=== PATIENT | male | born 1975 | race Two or more races ===

== ENCOUNTER 2024-11-26 17:07 | Emergency (ER) | payer BC, SELFPAY ==
[2024-11-26 17:21] VITALS: BP 224/117; PULSE 89; RESP 18; TEMP 36.7; O2SAT 99
--- NOTE | 2024-11-26 17:27 | XR_ITS ---
Examination: CT brain head without contrast. 2-D sagittal coronal reconstructions Date and time of exam:November 26, 2024, 1733 hrs. Indications: Severe headaches and dizziness beginning 3 days ago CTDI: vol (mGy):50.9. DLP: (mGycm):993. Technique: Multiple CT axial sections of the brain have been obtained, 5 mm slice thickness. Contrast has not been administered. 2-D sagittal, coronal reconstructions have been obtained Low dose protocols were performed. One or more of the following dose reduction techniques were used; automated exposure control, adjustment of the mA and/or KV according to patient size, use of iterative reconstruction technique. Findings: No significant ventricular enlargement. Intra-axial or extra-axial hemorrhage density is not seen. No mass effect or midline shift Basal cisterns are not remarkable. Fourth ventricle is midline. Cranial vault intact. Chronic pansinusitis. Impression: Negative for acute hemorrhage, mass effect or midline shift Advise clinical correlation and follow-up accordingly.
--- NOTE | 2024-11-26 17:28 | PD.EDRME ---
Rapid Medical Screening Exam RME Arrival date/time: 11/26/24 17:07 49-year-old male with history of hypertension presents to the emergency room with a chief complaint of a 10 out of 10 headache, dizziness, lightheadedness x 3 days I have greeted and performed a focused initial assessment of this patient. A comprehensive ED assessment and evaluation of the patient, analysis of all test results, and completion of the medical decision making process will be conducted by additional ED providers. Chief Complaint: Dizziness Time Seen by Provider: 11/26/24 17:09 Vital signs: Vital Signs Temperature 98.1 F 11/26/24 17:21 Pulse Rate 89 11/26/24 17:21 Respiratory Rate 18 11/26/24 17:21 Blood Pressure 224/117 H 11/26/24 17:21 Pulse Oximetry (%) 99 11/26/24 17:21 Oxygen Delivery Method Room Air 11/26/24 17:21 Vital signs reviewed by provider: Yes
[2024-11-26 17:45] VITALS: BP 216/133; PULSE 87
[2024-11-26 17:57] LABS: Basophils # (Auto) 0.1 Thou/mm3 (0.0-0.2); Basophils % (Auto) 1 % (0-2.5); Eosinophils # (Auto) 0.0 Thou/mm3 (0.0-0.5); Eosinophils % (Auto) 1 % (0-10); Hematocrit 48.0 % (41.0-53.0); Hemoglobin 16.3 g/dL (13.5-16.0); Immature Granulocytes Auto 0.02 Thou/mm3 (0.00-0.00); Lymphocytes # (Auto) 2.0 Thou/mm3 (1.0-4.8); Lymphocytes % (Auto) 23 % (10-50); Mean Corpuscular HGB Conc 34.0 g/dl (31.0-37.0); Mean Corpuscular Hemoglobin 30.1 pg (25.0-35.0); Mean Corpuscular Volume 89 fL (80-100); Monocytes # (Auto) 0.5 Thou/mm3 (0.0-0.8); Monocytes % (Auto) 6 % (0-12); Neutrophils # (Auto) 6.1 Thou/mm3 (1.8-7.7); Neutrophils % (Auto) 70 % (37-80); Nucleated Red Blood Cell # 0.00 Thou/mm3 (0.00-0.00); Nucleated Red Blood Cell % 0 /100 WBC (0); Platelet Count 211 Thou/mm3 (140-440); RDW Standard Deviation 39.9 fL (35.1-43.9); Red Blood Count 5.42 Miln/mm3 (4.50-5.90); White Blood Count 8.7 Thou/mm3 (3.8-10.6)
[2024-11-26 18:11] LABS: INR 1.0 (0.9-1.3); Partial Thromboplastin Time 23.3 Seconds (22.0-36.0); Prothrombin Time 11.0 Seconds (9.0-12.2)
[2024-11-26 18:14] LABS: Collection Type, Urine Clean Catch; WBC,Urine 0 /hpf (0-5)
[2024-11-26 18:18] LABS: B-Type Natriuretic Peptide < 20 pg/mL (0-100)
[2024-11-26 18:19] LABS: Alanine Aminotransferase 38 U/L (10-49); Albumin, Serum 4.9 gm/dL (3.5-5.0); Albumin/Globulin Ratio 1.6 (1.2-2.2); Alkaline Phosphatase 87 U/L (46-116); Anion Gap 14 (7-16); Aspartate Amino Transferase 19 U/L (0-34); BUN/Creatinine Ratio 15 Ratio (12-20); Bilirubin,Total 0.9 mg/dL (0.3-1.2); Blood Urea Nitrogen 12 mg/dL (9-23); Calcium 10.0 mg/dL (8.3-10.6); Calcium (Corrected) 10.0 mg/dL (8.5-10.1); Carbon Dioxide 27.5 mMol/L (20.0-31.0); Chloride 102 mMol/L (98-107); Creatinine (Component) 0.8 mg/dL (0.6-1.3); Estimated Creatinine Clearance 121.4 mL/min (>60); Globulin 3.0 gm/dL (2.3-3.5); Glucose 112 mg/dL (74-106); Osmolality,Calculated 285 (275-295); Potassium 3.7 mMol/L (3.4-5.1); Sodium 143 mMol/L (136-145); Total Protein 7.9 gm/dL (5.7-8.2); Troponin I < 0.020 ng/mL (0.0-0.045); eGFR > 60 See Note
[2024-11-26 18:26] LABS: Amorphous Crystals,Urine Present (Absent); Bilirubin,Urine Negative (Negative); Blood,Urine Negative (Negative); Color,Urine Yellow (Lt Yel-Yel); Culture Indicated,Urine Not Indicated; Glucose, Urine Negative (Negative); Ketones,Urine 1+ (Negative); Leukocyte Esterase,Urine Negative (Negative); Nitrite,Urine Negative (Negative); PH,Urine 7.0 (5.0-7.0); Protein,Urine Trace (Neg - Trace); RBC,Urine 1 /hpf (0-3); Specific Gravity,Urine 1.021 (1.001-1.035); Squamous Epithelial Cell,Urine 1 /hpf (0-5); Urobilinogen,Urine Negative mg/dL (0.0-1.0)
[2024-11-26 18:28] LABS: Clarity,Urine Turbid (Clear/Hazy)
[2024-11-26 18:35] LABS: Amphetamine/Methamp Scrn,U Negative (Negative); Barbiturate Screen,Urine Negative (Negative); Benzodiazepines Screen,Urine Negative (Negative); Benzoylecgonine Screen, Ur Negative (Negative); Fentanyl Screen,Urine Negative (Negative); Opiate Screen,Urine Negative (Negative); THC Screen,Urine Negative (Negative)
--- NOTE | 2024-11-26 18:46 | PD.EDADULT ---
ED General RME/HPI General Chief complaint: Dizziness Stated complaint: VERY LIGHTHEADED SINCE TUESDAY Time Seen by Provider: 11/26/24 17:09 Arrival date/time: 11/26/24 17:07 CC: Intermittent dizziness lightheadedness and occasional headache HPI ongoing for the past 10 days but worse in the past 3 days. Patient has a longstanding history of hypertension but has been noncompliant with medications buying medications from [place] occasionally to manage it. Patient is awake alert oriented denies chest pain shortness of breath or difficulty breathing denies any seeing spots floaters blurred vision bloody urination nausea vomiting or chest pain. RME / HPI RME / HPI narrative: 11/26/24 17:07 49-year-old male with history of hypertension presents to the emergency room with a chief complaint of a 10 out of 10 headache, dizziness, lightheadedness x 3 days I have greeted and performed a focused initial assessment of this patient. A comprehensive ED assessment and evaluation of the patient, analysis of all test results, and completion of the medical decision making process will be conducted by additional ED providers. Related Data Previous Rx's ?Medication ?Instructions ?Recorded hydrochlorothiazide 25 mg tablet 25 mg PO QAM #30 tabs 11/26/24 lisinopril 20 mg tablet 20 mg PO QDAY #30 tabs 11/26/24 Allergies Allergy/AdvReac Type Severity Reaction Status Date / Time No Known Allergies Allergy Verified 11/26/24 17:09 Review of Systems Review of Systems Narrative Review of Systems: GEN: No fever, no chills, no weight loss EYES: No discharge, no visual changes, no pain HEENT: No ear pain, no congestion, no sore throat PULM: No shortness of breath, no cough, no congestion CV: No chest pain, no dyspnea on exertion, no palpitations GI: No nausea, no vomiting, no diarrhea, no pain, no constipation : No frequency, no urgency, no dysuria MUSC/SKEL: No joint pain, no back pain SKIN: No rash PSYCH: No hallucinations, no depression HEME/LYMPH: No easy bleeding or bruising tendencies NEURO: + weakness, + dizziness, + headache Past Medical History Social History SMOKING STATUS: Current some day smoker ED Exam Narrative Physical exam: [General: Not in any acute distress Head normocephalic HEENT: Eyes pupils are PERRLA EOMs are intact no nystagmus mouth pink moist membranes uvula is midline swallow symmetrical phonation is normal all of the subsystems of HEENT are within acceptable limits Neck is supple nontender no JVD no edema Chest equal chest rise nontender to palpation Respiratory: Clear to auscultation no wheezes crackles or rubs CV: Rate rhythm is regular no murmurs rubs or clicks Abdomen is soft nontender no masses positive bowel sounds all 4 quadrants Back: No CVA tenderness no spinous process tenderness from cervical spine thoracic and lumbar spine Skin: Intact no petechiae rash induration ulceration or crepitus Extremities: Moving all extremity against resistance cap refill less than 2 seconds neurosensory intact. No lower extremity edema Neuro: Awake alert oriented x3 Glascow coma 15 no focal deficits] Course Course Course Narrative: Blood pressure at 1926 after 20 of hydralazine is 192/106, patient now given 0.2 of clonidine. Quality Measures none Orders Category Date Time Status EKG (ED ONLY) *Do not use* NOW Care 11/26/24 17:27 Completed Saline [Insert IV] NOW Care 11/26/24 18:[address] head/brain wo con Stat Exams 11/26/24 17:27 Completed EKG (ED Only) Stat Exams 11/26/24 17:27 Ordered B-Type Natriuretic Peptide Stat Lab 11/26/24 17:45 Completed CBC Stat Lab 11/26/24 17:45 Completed Comprehensive Metabolic Panel Stat Lab 11/26/24 17:45 Completed Drug Screen,Urine Stat Lab 11/26/24 18:09 Completed Partial Thromboplastin Time Stat Lab 11/26/24 17:45 Completed Prothrombin Time with INR Stat Lab 11/26/24 17:45 Completed Troponin I Stat Lab 11/26/24 17:45 Completed Urinalysis, C/S if Indicated Stat Lab 11/26/24 18:09 Completed cloNIDine HCL [Catapres] Med 11/26/24 17:27 Discontinued 0.2 mg PO X1 ONE cloNIDine HCL [Catapres] Med 11/26/24 19:26 Discontinued 0.2 mg PO X1 ONE hydrALAZINE INJ [Apresoline Inj] Med 11/26/24 18:46 Discontinued 20 mg IVP X1 ONE Vital Signs Vital signs: Vital Signs Temperature 98.1 F 11/26/24 17:21 Pulse Rate 89 11/26/24 17:21 Respiratory Rate 18 11/26/24 17:21 Blood Pressure 224/117 H 11/26/24 17:21 Pulse Oximetry (%) 99 11/26/24 17:21 Oxygen Delivery Method Room Air 11/26/24 17:21 Discharge Plan Plan Patient Disposition: HOME (Self Care) Patient condition on transfer: Stable Prescriptions/Referrals Prescriptions/Med Rec: New hydrochlorothiazide 25 mg tablet 25 mg PO QAM Qty: 30 1RF lisinopril 20 mg tablet 20 mg PO QDAY Qty: 30 1RF Referrals: [facility] [Outside] - In 1 week Santana Caal MD ([id number]) [Referring Provider] - In 1 week Steve Sanders MD [Primary Care Provider] - In 1 week Problem List Clinical Impression: Hypertension Patient/Caregiver Discharge Instructions Other Activity Instructions:: Monitor your blood pressure twice a week and write it down take the log when you follow-up with your primary care provider. Take the medications like clockwork. Avoid salts in food. Exercise daily. Education Materials: Controlling High Blood Pressure, Eating Heart-Healthy Foods, Blood Pressure Check Steps, ED Hypertension, New (Begin Treatment) Additional Instructions: Take the medications as prescribed follow-up with the doctors listed above. Print Language: Bel[place]ian Stand Alone Forms: [employer] Award Info., Work/School Release, Patient Portal Info Letter PA/CORTNEY Supervising Physician PA/CORTNEY Supervising Physician: Joel Barth ENP MDM Clinical Information Provided by patient Medical Records Reviewed [facility] Meds/Rx Considered, not Ordered None Labs/Rad/Tests considered, not Ordered None Chronic Illness/Social Conditions Add or document further as needed: Untreated hypertension EKG EKG Interpretation narrative: EKG performed at 1736 shows a ventricular rate of 85 MS interval 154 QRS of 93 QTc of 401 this is sinus rhythm right bundle branch block. No significant ST segment elevation or depressions. No old EKG for comparison Lab Interpretation Labs: interpreted by vt Lab(s) interpretation(s): CBC shows no acute leukocytosis, anemia, thrombocytopenia Coags within acceptable limits CMP shows no electrolyte imbalances other glucose of 112, no transaminitis or T. bili elevation Troponin and BNP within acceptable limits Urine is turbid, 1+ ketones, trace protein no indications of UTI. UDS is negative Imaging Imaging interpretation: interpreted by me Provider imaging interpretation(s): CT head interpreted by me read by radiology as negative for any acute finding. Radiology reports / interpretation(s): Patient has no signs of endorgan damage at this time we will bring his blood pressure down and start him on daily medications for him to follow-up on outpatient basis. Medication Administration(s) Medication Administration History Discontinued Medications Clonidine (Clonidine Hcl 0.1 Mg Tablet) 0.2 mg PO X1 ONE Stop: 11/26/24 17:28 Last Admin: 11/26/24 17:45 Dose: 0.2 mg Documented By: ELISE Clonidine (Clonidine Hcl 0.1 Mg Tablet) 0.2 mg PO X1 ONE Stop: 11/26/24 19:27 Last Admin: 11/26/24 19:37 Dose: 0.2 mg Documented By: NATALIE Hydralazine HCl (Hydralazine Inj 20 Mg/Ml Vial) 20 mg IVP X1 ONE Stop: 11/26/24 18:47 Last Admin: 11/26/24 19:01 Dose: 20 mg Documented By: ER
[2024-11-26 19:01] VITALS: BP 192/124; PULSE 91
[2024-11-26] MEDS: hydrALAZINE INJ 20 MG/ML VIAL IVP (19:01)
[2024-11-26 19:36] VITALS: BP 182/99; PULSE 104; RESP 18; TEMP 36.9; O2SAT 95
[2024-11-26 19:37] VITALS: BP 182/99; PULSE 104
[2024-11-26 20:47] VITALS: BP 185/97; PULSE 101; RESP 16; TEMP 36.7; O2SAT 100
== END 2024-11-26 20:49 | disposition home or self-care (01) ==
PROVIDERS: Nurse Practitioner Family; Emergency Provider Emergency Medicine; PCP Student in an Organized Health Care Education/Training Program
DX: I10 Essential (primary) hypertension (principal); R51.9 Headache, unspecified; R42 Dizziness and giddiness; Z91.148 Patient's other noncompliance with medication regimen for other reason; I45.10 Unspecified right bundle-branch block; F17.210 Nicotine dependence, cigarettes, uncomplicated
CPT/HCPCS: 36415; 70450; 80053; 80307; 81001; 83880; 84484; 85025; 85610; 85730; 93005; 96374; 99283; J0360; A9270

== ENCOUNTER → 2024-12-28 | Outpatient (CLI) | payer BC, SELFPAY ==
--- NOTE | 2024-12-28 13:59 | XR_ITS ---
Examination: CT abdomen without intravenous contrast. Coronal 2-D reconstructions. Sagittal 2-D reconstructions. Date and time of exam: December 28, 2024, 1359 hours INDICATIONS: Hypertension months CTDI: vol (mGy): 11.7 DLP: (mGycm): 476 Technique: Axial images of the abdomen have been obtained, 3 mm slice thickness, without intravenous contrast 2-D sagittal coronal reconstructions Low dose protocols were performed. One or more of the following dose reduction techniques were used; automated exposure control, adjustment of the mA and/or KV according to patient size, use of iterative reconstruction technique. Findings: Minor irregularity of the liver contour No focal liver or splenic lesions Contracted gallbladder No pancreatic or adrenal mass No renal or ureteral calculi, no hydronephrosis Aorta normal size. No bowel obstruction Normal appendix IMPRESSION: Normal adrenal glands
== END | disposition home or self-care (01) ==
LOC: SCAT 13:36
PROVIDERS: PCP Internal Medicine; Referring Provider Internal Medicine; Visit Provider Internal Medicine
DX: I10 Essential (primary) hypertension (principal)
CPT/HCPCS: 74150